=== PATIENT | female | born 1980 | race Asian ===

== ENCOUNTER → 2016-12-27 | Outpatient (CLI) | payer OTHER ==
--- NOTE | 2016-12-27 08:45 | RADIOLOGY REPORT (SQ) ---
EXAM DESCRIPTION: U/S NON-OB PELVIS TV W/O DOP COMPLETED DATE/TIME: 12/27/2016 8:33 am REASON FOR STUDY: ENCOUNTER FOR FERTILITY TESTING (Z31.41) Z31.41 ENCOUNTER FOR FERTILITY TESTING COMPARISON: None. TECHNIQUE: Dynamic and static grayscale images acquired of the pelvis via transvaginal approach and recorded on PACS. Additional selected color Doppler and spectral images recorded. LIMITATIONS: None. FINDINGS: UTERUS: Contour normal. No mass. ENDOMETRIAL STRIPE: No focal or generalized thickening. No masses. CERVIX: Small nabothian cyst is identified. RIGHT OVARY: Multiple small follicles are identified. RIGHT OVARY DOPPLER: Normal arterial vascular flow without evidence for torsion. LEFT OVARY: Multiple small follicles are identified. LEFT OVARY DOPPLER: Normal arterial vascular flow without evidence for torsion. FREE FLUID: None noted. OTHER: No other significant finding. MEASUREMENTS: UTERUS: 7.5 x 4.7 x 3.2 cm ENDOMETRIAL STRIPE: 2.5 mm RIGHT OVARY: 3.3 x 2.7 x 2.2 cm LEFT OVARY: 3.2 x 2.4 x 2.1 cm IMPRESSION: Multiple small follicles are identified in both ovaries. Other findings as noted above TECHNICAL DOCUMENTATION: JOB ID: [id number] [employer]- All Rights Reserved
[2016-12-29 07:52] LABS: FOLLICLE STIMULATING HORMONE 4.9 mIU/mL (.); PROGESTERONE <0.1 ng/mL (.)
== END ==
LOC: RAD 07:35
PROVIDERS: ATTEND Obstetrics & Gynecology Reproductive Endocrinology
DX: Z31.41 Encounter for fertility testing (principal)
CPT/HCPCS: 36415; 76830; 82670; 83001; 83002; 84144; 84702